=== PATIENT | male | born 1980 | race Caucasian/White ===

== ENCOUNTER 2017-11-12 00:24 | Emergency (ER) | payer SELFPAY ==
[~2017-11-12] VITALS: Ht 170.2 cm; Wt 70.0 kg
--- NOTE | 2017-11-12 00:24 | NUR ---
PT [facility] BLS. TAKEN TO BED 6
[2017-11-12 00:25] VITALS: BP 138/88
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
--- NOTE | 2017-11-12 00:30 | NUR ---
[place] [facility] AT BEDSIDE
--- NOTE | 2017-11-12 00:56 | NUR ---
Dr. Lerma evaluating patient at bedside.
--- NOTE | 2017-11-12 01:13 | NUR ---
PT TAKEN TO CT
--- NOTE | 2017-11-12 01:19 | NUR ---
PT RETURN FROM CT
[2017-11-12 01:40] VITALS: BP 143/83
--- NOTE | 2017-11-12 01:40 | NUR ---
Patient discharged with v/s stable. Written and verbal after care instructions given and explained. Patient alert, oriented and verbalized understanding of instructions. Ambulatory with steady gait. All questions addressed prior to discharge. ID band removed. Patient advised to follow up with PMD. Rx of BACITRACIN, AND ACETAMINOPHEN given. Patient educated on indication of medication including possible reaction and side effects. Opportunity to ask questions provided and answered.
== END 2017-11-12 01:40 | disposition home or self-care (01) ==
LOC: MED 00:24
DX: S01.01XA Laceration without foreign body of scalp, initial encounter (principal); W19.XXXA Unspecified fall, initial encounter; Y93.89 Activity, other specified; Y92.89 Other specified places as the place of occurrence of the external cause; Y99.8 Other external cause status
CPT/HCPCS: 12001; 70450; 90471; 90715; 99284